=== PATIENT | female | born 1985 | race Caucasian/White ===

== ENCOUNTER 2022-06-29 16:16 | Inpatient (IN) | payer OTHER ==
[~2022-06-29] VITALS: Ht 162.6 cm; Wt 81.6 kg
[~2022-06-29 16:16] MED LIST: PRENATABS FA T1 EACH PO
--- NOTE | 2022-06-30 08:48 | PR ---
[facility] [address] [place], [place] [address] Signed PP Progress Notes Datetime Report Generated by CPN: 06/30/2022 08:48 SUBJECTIVE: [id number] Pain: Within Normal Limits Vital Signs: [id number] Vital Signs: Reviewed; Within Normal Limits EXAM: Ongoing Cardiovascular: Not Done Respiratory: Not Done Abdomen/Uterus: Abnormal Lochia: Normal Vulva/Perineum: Not Done Breasts: Not Done CVA Tenderness: Not Done Extremities: Normal Incision: Not Applicable Progress: Normal Exam Comments: Fundus firm, NT @ U-1. H/H 11.1/32.4, WBC 15.4, plat 199k IMPRESSION/PLAN/PROCEDURES: [id number] Impression: Normal Progression Plan: Discharge Procedures: None Progress Notes: Doing well. She desires D/C this annemarie at 24 hrs. Signing Physician: Christie Gomez MD Copies: ~ *Electronically Signed* 06/30/22 0848 CHRISTIE GOMEZ MD PATIENT NAME: MEG RODRIGUEZ PROGRESS NOTE DATE OF : 87 PHYSICIAN: CHRISTIE GOMEZ MD RPT #: [id number] REPORT IS CONFIDENTIAL AND NOT TO BE RELEASED WITHOUT AUTHORIZATION
== END 2022-06-30 18:53 | disposition home or self-care (01) | DRG 807 ==
LOC: FBCO 16:16 → FBC 17:23
PROVIDERS: ADMIT Obstetrics & Gynecology; ATTEND Obstetrics & Gynecology
PROC: 10E0XZZ Delivery of Products of Conception, External Approach (ICD-10-PCS; principal; 2022-06-29)
PROC: 00HU33Z Insertion of Infusion Device into Spinal Canal, Percutaneous Approach (ICD-10-PCS; 2022-06-29)
PROC: 3E0R3BZ Introduction of Anesthetic Agent into Spinal Canal, Percutaneous Approach (ICD-10-PCS; 2022-06-29)
DX: O80 Encounter for full-term uncomplicated delivery (principal); Z37.0 Single live birth; Z20.822 Contact with and (suspected) exposure to COVID-19; Z67.20 Type B blood, Rh positive; Z3A.38 38 weeks gestation of pregnancy
CPT/HCPCS: 01960; 36415; 59025; 84112; 85027; 86850; 86900; 86901; 87502; A9270; C9803; G0463; J2590; U0003